=== PATIENT | female | born 1980 | race Caucasian/White ===

== ENCOUNTER 2022-02-14 09:55 | Day surgery (SDC) | payer BC ==
[2022-02-09 14:04] LABS: Urine Appearance CLOUDY (Clear); Urine Color YELLOW (Yellow)
[2022-02-09 14:05] LABS: Urine Bacteria <20 /HPF (<20); Urine Bilirubin NEGATIVE (Negative); Urine Blood 3+ (Negative); Urine Glucose NEGATIVE (Negative); Urine Microscopic Reflex ORDER UMIC; Urine Protein 1+ (Negative); Urine RBC >50 /HPF (NONE SEEN); Urine Urobilinogen 0.2 mg/dL (0.2-1.0); Urine pH 5.5 (5.0-7.0)
[2022-02-09 14:10] LABS: Absolute Lymphocytes (CBC) 2.2 K/uL (0.7-4.9); Lymphocytes % 23.7 % (15.3-44.8); MPV 7.3 fL (7.6-11.3); RBC Red Blood Cell Count 4.76 M/uL (3.86-4.86)
[~2022-02-14 09:55] MED LIST: Ringers Lactate 1,000 ML IV SCH; SCOPOLAMINE HYDROBROMIDE PATCH TD SCH
[2022-02-14 10:20] LABS: Specific Gravity 1.015 (1.005-1.030)
[2022-02-14] MEDS ORDERED: Ringers Lactate 1,000 ML IV ONE (10:20)
[2022-02-14] MEDS ORDERED: KETOROLAC 30 MG/ML INJ ONE (10:40)
[2022-02-14] MEDS ORDERED: FENTANYL CITR 100 MCG/2 ML ONE (10:40)
[2022-02-14] MEDS ORDERED: LIDOCAINE 2% MPF 5 ML VIAL ONE (10:40)
[2022-02-14] MEDS ORDERED: ONDANSETRON 4 MG/2 ML VIAL ONE (10:40)
[2022-02-14] MEDS ORDERED: MIDAZOLAM HCL 2 MG/2 ML INJ ONE (10:40)
[2022-02-14] MEDS ORDERED: dexAMETHasone 10 MG/ML VIAL ONE (10:40)
[2022-02-14] MEDS ORDERED: propofoL 200 MG/20 ML VIAL IV ONE (10:44)
[2022-02-14] MEDS ORDERED: SCOPOLAMINE HYDROBROMIDE PATCH TD ONE (11:02)
[2022-02-14] MEDS: BUPIVACAINE 0.25% PF 10 ML VIAL ONE ×3 (11:07→13:00)
[2022-02-14] MEDS: CEFAZOLIN 3 GM in NA CHLORIDE 0.9% 100 ML IVPB SCH ×2 (11:08→11:53)
[2022-02-14] MEDS ORDERED: ROCURONIUM 50 MG/5 ML VIAL IV ONE (12:03)
[2022-02-14] MEDS ORDERED: VECURONIUM 10 MG/VIAL IV ONE (12:38)
[2022-02-14] MEDS ORDERED: NS 0.9% VIAL 10 ML ONE (12:38)
[2022-02-14] MEDS: Ringers Lactate 1,000 ML IV ONE ×2 (13:42→14:27)
[2022-02-14] MEDS ORDERED: SUGAMMADEX SODIUM 200 MG/2 ML VIAL IV ONE (13:56)
[2022-02-14] MEDS ORDERED: MEPERIDINE HCL 25 MG/ML SYR IM PRN (15:10)
[2022-02-14] MEDS ORDERED: IBUPROFEN 200 MG TAB PO PRN (15:10)
[2022-02-14] MEDS ORDERED: HYDROCODONE/APAP 5/325 MG TAB PO PRN (15:10)
[2022-02-14] MEDS ORDERED: PROMETHAZINE INJ 25 MG/ML AMP IV PRN (15:10)
[2022-02-14] MEDS: HYDROMORPHONE HCL 1 MG/ML INJ ONE ×2 (15:15→15:26)
--- NOTE | 2022-02-14 15:19 | P.BOP ---
Preoperative diagnosis: LLQ pain, distension, menorrhagia,Left adnexal mass Postoperative diagnosis: same and endometriosis, appy, colon and left ureteral adhesions Primary procedure: hysteroscopy ablation, Laparoscopy bilat salpingectomy,L oophorectomy Secondary procedure: Left ureterolysis, Endometirosis rx, cysto, Other procedure(s): appy Dr Almazan (intraop consult) Section Cutter: Yvonne Pak Estimated blood loss: 50 Specimen: left ov+tube, Rt tube, Ant CDS endo, appendix Findings: sigmoid adhesions to uterus,L ovary,lat wall,CDS obliteration,endo Anesthesia: General Complications: None Transferred to: Recovery Room Condition: Good
[2022-02-14] MEDS ORDERED: PROMETHAZINE INJ 25 MG/ML AMP ONE (15:20)
--- NOTE | 2022-02-14 15:51 | P.OP ---
Date of Service: 02/14/22 Preop diagnosis: Pelvic pain and menorrhagia Postop diagnosis: Same, with endometriosis involving the appendix Procedure performed: Intraoperative consultation, laparoscopic appendectomy Surgeon: Lee Almazan MD Wool Classer: JEANCARLOS Mendieta Estimated blood loss: Minimal Specimen: Appendix Findings: As above Anesthesia: General Complications: None Drains: None Fluids and blood products: Nonapplicable Disposition: Recovery Operative note: This is a intraoperative consultation and procedure note. Dr. Thrasher was performing a diagnostic laparoscopy for pelvic pain and menorrhagia. Patient was found to have extensive endometriosis. Dr. Thrasher consulted me intraoperatively because she found endometriosis involving the appendix. After she had finished her procedure, I scrubbed in and evaluated the laparoscopic findings. Patient had a endometrial deposit in the middle of the appendix. Base of the appendix and mesoappendix was clearly identified. LigaSure was used to divide the mesoappendix. Endo NAVNEET stapling device was used to divide the base of the appendix and part of the cecum. There was no evidence of bleeding or bowel injury appreciated. The appendix was retrieved through the umbilicus via Endo Catch bag. Then all trochars removed under direct vision. Stay sutures tied to each other to reapproximate the fascial defect. Small defect remained; therefore, #1 Vicryl used to close the defect. Subcutaneous wounds irrigated and bleeding controlled with cautery. 3-0 chromic used to reapproximate subcutaneous tissue and closed skin. Sterile dressing applied and patient awakened. Patient taken to recovery room in good general condition. CC: Dr. Thrasher's office
[2022-02-14] MEDS ORDERED: HYDROCODONE/APAP 5/325 MG TAB ONE (16:25)
[2022-02-14] MEDS ORDERED: HYDROCODONE/APAP 5/325 MG TAB PO ONE (16:25)
[2022-02-14 16:40] VITALS: TEMP 97.8; O2SAT 99
[2022-02-14 16:58] VITALS: BP 135/77
--- NOTE | 2022-02-14 22:46 | OP ---
Date of Procedure: 02/14/2022 Surgeon: Margo Thrasher MD Kitchen Work Supervisor: Yvonne Gomes. Preoperative Diagnoses: Left lower quadrant pain, abdominal distention, menorrhagia, left adnexal ma ss. Postoperative Diagnoses: Left lower quadrant pain, abdominal distention, menorrhagia, left adnexal m ass, endometriosis with possible appendicitis, colon and left ureteral adhesions. Procedures Performed: Hysteroscopy, endometrial ablation with NovaSure, laparoscopy, bilateral salpi ngectomy, left oophorectomy, left ureterolysis, endometriosis excision, cystoscopy, intraoperative co nsult with Dr. Almazan, laparoscopic appendicectomy. Estimated Blood Loss: 50. Specimens: Left ovary and tube, right tube, cul-de-sac endometriosis, and appendix. Anesthesia: General endotracheal. Complications: No complications. Drains: None. Condition: The patient's condition is stable. Findings: As soon as the peritoneal cavity was entered, there was significant amount of blood in the pelvic cavity, sigmoid adhesions to the left posterior fundal wall and this was from endometriosis. The left ovary, utero-ovarian ligament, and the left lateral broad ligament and tube were all involv ed with endometriosis. The ovary was distally posteriorly adhered to the posterior broad ligament th en uterosacral ligament and the pelvic sidewall. The adhesions of the colon, once they were taken down from the ovary carefully, were adhered densely to the uterosacral ligament. There was partial cul-de-sac obliteration due to this. However, on the right side, there is an opening that I could get into the cul-de-sac and try to take the colon down. The right ovary was normal. The right tube was removed. There was endometriosis in the anterior cul -de-sac on the left side and this was excised. Appendix was folded over the cecum and there were clear implants of endometriosis, however, the appen david was also swollen and nodular. The intraoperative consult was obtained from Dr. Almazan and he oper ated on her and performed a laparoscopic appendectomy. In summary, if the patient has another surgery like a hysterectomy, she will need a bowel prep, left ureteric stent with cysto at the beginning of the procedure and then careful dissection with the pres ence of most likely assistants from General Surgery or Colorectal to take down the sigmoid distally f rom the uterosacral ligament so that the hysterectomy could be completed normally. After the cystoscopy was performed, both ureteral orifices had normal jets of urine from them. Indications: The patient is a 41-year-old female who presented with left lower quadrant pain, disten tion, menorrhagia, left adnexal mass. The ultrasound was performed. Left adnexal mass was significa nt. CA-125 was just consistent with a non malignant process, however, the small chance of this being present were discussed with the patient and if there was endometriosis, that we would remove it. Of fered different options, but the patient wanted to proceed with ablation with a hysteroscopy and lapa roscopy and removal of endometriosis and any procedures as needed. She was consented for bilateral s alpingectomy, left ovarian cystectomy or oophorectomy depending on the feasibility of the procedure a nd safely performing it and completely. These are all the findings. Procedure In Detail: After removal of the endometriosis, there was significant space created in the left lateral wall and then endometriosis on the uterus was nicely taken down. The implant on the ant erior cul-de-sac was removed. Both tubes were removed. After informed consent was verified, the patient was taken back to OR, placed in supine fashion on e table. SCDs were started. Time-out was done and 3 g of Ancef was given. She was placed in dorsal lithotomy position, and abdomen, vulva, vagina, and perineum were prepped an d draped in a sterile fashion. Brito was placed to drain the bladder. Speculum was placed to expose the cervix. Anterior lip was grasped with an Allis clamp and diagnostic SlimLine hysteroscope was u sed to measure the uterine canal under direct visualization. Cavity length measured to 4 cm. Power wattage was 81 momin, time of ablation 1 minute 16 seconds with 3.7 then 4.0. Once the scope was rem karen, cavity integrity test was done after dilating the cervix to 18-Japanese and deploying the device in the usual fashion. The length was 4 cm and the width was 3.7 cm with direct calculation. I went ahead and started the ablation after the cavity integrity test and there was excellent ablation effec t. Once the device was undeployed, hysteroscopy was performed to ensure this inside the cavity. Onc e this was done, the manipulator was placed inside the uterus. After making sure that the abdomen was draped appropriately, a 1 cm incision was made in the infraumb ilical area with the scalpel. Fascia was incised and tagged with 0 Vicryl sutures. Peritoneum enter ed sharply. S-retractors were placed and Jeffy introduced. After adequate insufflation, the camera was placed. Port site was unremarkable. Upper abdominal surface was unremarkable. I went down to the pelvis and all the findings as dictated above were seen. So two 5 ports were plac ed, one in the right and the other in the left lower quadrant. Once this was done, good visualizatio n was obtained. I started to work on the colon that was adhered to the left posterior fundal wall. This was taken down systematically, resting mostly on the uterine wall. With sharp and blunt dissect ion and with the tip of the suction, this was done. Once the colon was taken down, the ovary was attached to the uterus as well as the lateral wall and t he posterior broad ligament and then distally attached to the uterosacral, so it was difficult to dis cern the relationship here of the colon. So first started opening up the lateral wall and taking yessica n the left tube. Once this was taken down with the help of LigaSure, then opened the lateral wall an d dissected above and below the round ligament. Below the round ligament, opened up all the base so that I could get into the retroperitoneal space on the left side. Once this was done and the ureter was identified along the medial leaf of the broad ligament, then posteriorly coming down the ovary wa s dissected from the colon safely while protecting the colon, then going down to the origin of the ut erosacral. Here, the ovary sharply and bluntly with the help of the LigaSure and then dis secting it off from the posterior broad ligament from visualization through the top of the broad liga ment, which was already opened up. This kept it safe and once the ovary was detached from all these attachments, then uteroovarian ligament was taken down and then it was dissected on the IP ligament a nd isolated. Ureter was completely dissected from the pelvic rim to the ureteric tunnel visualizing the medial leaf of the broad ligament and from the lateral wall so that all the suction co uld be safely performed. Then went ahead and took down the IP ligament with the help of the LigaSure and the specimen was deta ched and placed in the anterior cul-de-sac. Endometriosis of the anterior cul-de-sac on the left side was picked up and circumferentially separat ed and dissected out and handed out for permanent pathology. The specimen of the ovary was placed in a 10 mm bag and pulled out through the umbilical port. The tube on the right side was taken down with the help of the LigaSure. Then, the rest of the perit oneum was inspected. There was small amount of endometriosis in the posterior cul-de-sac dissecting the sigmoid from the uterosacral on the left side, but it was difficult. Next time, if there is a ne xt time, it is very important to place a stent on the ureter so that the ureter can be safely protect ed and dissected away from the uterosacral ligament before taking down the colon and once the colon w as taken down the pararectal spaces on the left side then the colon could be dropped to expose the po sterior vaginal wall. Once the pelvic surgery was completed, then looked over to the appendix and this had the endometriosi s and the swelling as dictated. Please look at Dr. Almazan's note. At this point, I scrubbed out and handed the procedure to Dr. Almazan and he closed the incisions and finished the case. All this was debriefed to the . We will talk about it to the patient as well, but I expect th at she will get much better and we will see the outcome and proceed with further plan. EMILY Voice ID: [id number] Report ID: [id number]
[2022-02-15] MEDS ORDERED: ROSUVASTATIN 10 MG TAB PO SCH (09:00)
[2022-02-15] MEDS ORDERED: EZETIMIBE 10 MG TAB PO SCH (09:00)
[2022-02-15] MEDS ORDERED: FLUTICASONE 50MCG NASAL SPRAY NAS SCH (09:00)
[2022-02-15] MEDS ORDERED: HOME MED 1 EA UNK (Cetirizine Hcl [Zyrtec] 10 MG Capsule) PO SCH (09:00)
== END 2022-02-14 16:57 | disposition home or self-care (01) ==
LOC: OR 09:55
PROVIDERS: ATTEND Obstetrics & Gynecology
PROC: 0UT14ZZ Resection of Left Ovary, Percutaneous Endoscopic Approach (ICD-10-PCS; 2022-02-14)
PROC: 0UT74ZZ Resection of Bilateral Fallopian Tubes, Percutaneous Endoscopic Approach (ICD-10-PCS; 2022-02-14)
PROC: 0UBF4ZZ Excision of Cul-de-sac, Percutaneous Endoscopic Approach (ICD-10-PCS; 2022-02-14)
PROC: 0DTJ4ZZ Resection of Appendix, Percutaneous Endoscopic Approach (ICD-10-PCS; 2022-02-14)
PROC: 0U5B8ZZ Destruction of Endometrium, Via Natural or Artificial Opening Endoscopic (ICD-10-PCS; principal; 2022-02-14 11:00)
DX: N92.0 Excessive and frequent menstruation with regular cycle (principal); R31.21 Asymptomatic microscopic hematuria; N81.2 Incomplete uterovaginal prolapse; R19.09 Other intra-abdominal and pelvic swelling, mass and lump; R03.0 Elevated blood-pressure reading, without diagnosis of hypertension; Z30.09 Encounter for other general counseling and advice on contraception; Z20.822 Contact with and (suspected) exposure to COVID-19; K37 Unspecified appendicitis; R10.32 Left lower quadrant pain
CPT/HCPCS: 87088; 85025; 87086; 36415; 86900; 86850; 81025; 86901; 88304; 88305; 58563; 58661; 58662; 44970; U0002; J2704; J2550; J2250; J3010; J1100; J1170; J7120 ×2; J2405; J0690; 81003; 81015; 88302

== ENCOUNTER 2024-03-27 10:49 | Emergency (ER) | payer BC ==
[2024-03-27] MEDS ORDERED: MECLIZINE HCL 12.5 MG TAB ONE (11:25)
--- NOTE | 2024-03-27 11:31 | RAD REPORT ---
EXAM DESCRIPTION: CT - Head Brain Wo Cont - 03/27/2024 11:25 am CLINICAL HISTORY: vertigo;Dizziness COMPARISON: No comparisons TECHNIQUE: All CT scans are performed using dose optimization technique as appropriate and may inclu de automated exposure control or mA/KV adjustment according to patient size. FINDINGS: No intracranial hemorrhage, hydrocephalus or extra-axial fluid collection.No areas of brai n edema or evidence of midline shift. Cerebral atrophy. Mucous retention cyst in the left maxillary sinus. The calvarium is intact. IMPRESSION: No acute intracranial abnormality.
[2024-03-27 11:51] LABS: Absolute Basophils 0.1 K/uL (0-0.5); Absolute Eosinophils 0.4 K/uL (0-0.5); Absolute Lymphocytes (CBC) 2.6 K/uL (0.7-4.9); Absolute Monocytes 0.8 K/uL (0.1-1.3); Absolute Neutrophil 8.3 K/uL (1.8-8.0); Eosinophils % 3.3 % (0-4.4); Hematocrit 40.4 % (36.0-45.0); Lymphocytes % 21.1 % (15.3-44.8); MCH 30.4 pg (27.0-35.0); MCHC 34.6 g/dL (32.0-36.0); MCV 87.9 fL (80-100); MPV 7.1 fL (7.6-11.3); Monocytes % 6.8 % (3.3-12.3); Neutrophils % 67.8 % (41.7-73.7); Platelets 297 thou/uL (152-406); Red Cell Distribution Width 13.1 % (12.1-15.2)
[2024-03-27 12:08] LABS: Albumin/Globulin Ratio 1.4 (1.1-1.8); Anion Gap 14.2 mEq/L (5.0-15.0); Bilirubin Total 2.2 mg/dL (0.2-1.0); Globulin 2.9 g/dL (2.3-3.5); Potassium 3.2 mEq/L (3.5-5.1); Protein, Total 6.9 g/dL (6.4-8.2)
[2024-03-27] MEDS ORDERED: LORazepam 2 MG/ML VIAL ONE (12:20)
--- NOTE | 2024-03-27 12:56 | ER ---
Nurse's Notes [facility] Name: Lissa Dalal Age: 43 yrs Sex: Female : 1980 Arrival Date: 03/27/2024 Time: 10:49 Bed 16 Private MD: Diagnosis: Peripheral vertigo Presentation: 03/27 10:45 Chief complaint: Patient states: Dizziness, onset while at pilates laying on bed, nj1 moving head. States it happened once before last week when she got out of bed, not as severe. EMS states: Pt was at pilates and started feeling dizzy and shaky. 10:45 Method Of Arrival: EMS: [facility] 10:45 Coronavirus screen: Vaccine status: Patient reports receiving the 1st dose of the Covid nj1 vaccine. Ebola Screen: Patient denies travel to an Ebola-affected area in the 21 days before illness onset. Initial Sepsis Screen: Does the patient meet any 2 criteria? No. Patient's initial sepsis screen is negative. Does the patient have a suspected source of infection? No. Patient's initial sepsis screen is negative. Risk Assessment: Do you want to hurt yourself or someone else? Patient reports no desire to harm self or others. Onset of symptoms was March 27, 2024. Care prior to arrival: Medication(s) given: Normal saline infusion, 500 mL, zofran 4 mg, IV initiated. 22 GA, in the right hand, Glucose check: 78. 10:45 Acuity: DARLENE 3 nj1 Historical: - Allergies: 11:09 No Known Allergies; nj1 - PMHx: 11:09 Hypercholesterolemia; nj1 - Immunization history:: Client reports receiving the 1st dose of the Covid vaccine. - Infectious Disease History:: Denies. - Social history:: Smoking status: Patient denies any tobacco usage or history of. Screenin:[facility] ED Fall Risk Assessment (Adult) History of falling in the last 3 months, nj1 including since admission No falls in past 3 months (0 pts) Confusion or Disorientation No (0 pts) Intoxicated or Sedated No (0 pts) Impaired Gait No (0 pts) Mobility Assist Device Used No (0 pt) Altered Elimination No (0 pt) Score/Fall Risk Level 0 - 2 = Low Risk Oriented to surroundings, Maintained a safe environment, Hourly rounding (assess needs \T\ fall precautionary measures) done. Abuse screen: Denies threats or abuse. Denies injuries from another. Nutritional screening: No deficits noted. Tuberculosis screening: No symptoms or risk factors identified. Assessment: 10:50 General: Appears uncomfortable, Behavior is calm, cooperative, appropriate for age. nj1 10:50 Pain: Denies pain. Neuro: Level of Consciousness is awake, alert, obeys commands, nj1 Oriented to person, place, time, situation. Neuro: Reports dizziness. Cardiovascular: Patient's skin is warm and dry. Respiratory: Airway is patent Respiratory effort is even, unlabored. 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 nj1 Education provided.. Neuro: Reports Tingling all over.. Respiratory: Respiratory effort is Respiratory pattern is tachypnea. 13:52 General: Pt reports that she is still feeling nauseous. notified and another dose of kb3 zofran ODT ordered. Instructed pt to stop drinking water until nausea has resolved. 14:22 Reassessment: Patient appears in no apparent distress at this time. Patient states nj1 feeling better. Patient states symptoms have improved. Vital Signs: 10:45 BP 132 / 73; Pulse 87; Resp 16; Temp 97.4(TE); Pulse Ox 100% on R/A; Weight 77.11 kg; nj1 Height 5 ft. 0 in. ; 10:56 BP 132 / 73; Pulse 85; Resp 20; Temp 97.4; Pulse Ox 100% on R/A; aw1 12:11 BP 131 / 83; Pulse 95; Resp 18; Pulse Ox 100% on R/A; nj1 10:45 Body Mass Index 33.20 (77.11 kg, 152.4 cm) nj1 ED Course: 10:54 Patient arrived in ED. bc6 10:54 Amy Hathaway, PÉREZ is Primary Nurse. nj1 10:56 Patient has correct armband on for positive identification. Bed in low position. Call aw1 light in reach. Side rails up X2. Door closed. Noise minimized. Lights dimmed. Warm blanket given. Pillow given. 10:59 Neel Izaguirre MD is Attending Physician. sp3 11:00 Maintain EMS IV. Dressing intact. Site clean \T\ dry. Gauge \T\ site: 22 R Hand. IV is nj 1 patent. 11:08 Triage completed. nj1 11:10 Provided Education on: call light, fall precautions. nj1 11:27 CT Head Brain wo Cont In Process Unspecified. EDMS 13:18 No provider procedures requiring assistance completed. nj1 13:18 IV discontinued, intact, bleeding controlled, Pressure dressing applied. nj1 13:25 Notified ED physician of Notified Charge Nurse of dizzy upon sitting up to get ready to nj1 leave. Administered Medications: 11:34 Drug: Meclizine PO 50 mg PO once Route: PO; nj1 12:18 Follow up: Response: No adverse reaction nj1 12:24 Drug: Ativan IVP 1 mg IVP once Route: IVP; Site: right hand; nj1 13:15 Follow up: Response: No adverse reaction; Marked relief of symptoms nj1 13:15 Drug: Potassium Chloride PO 40 mEq PO once Route: PO; nj1 13:20 Drug: Ondansetron PO 4 mg PO once Route: PO; nj1 13:59 Drug: Ondansetron Oral Disintegrating Tablet Oral Disintegrating Tablet 4 mg PO once kb3 Route: PO; Medication: 13:18 VIS not applicable for this client. nj1 Outcome: 12:56 Discharge ordered by . sp3 13:15 Discharged to home via wheelchair, with family, nj1 13:15 Condition: stable 13:15 Discharge instructions given to patient, family, Instructed on discharge instructions, follow up and referral plans. medication usage, Demonstrated understanding of instructions, follow-up care, medications, Prescriptions given X 1, 14:22 Patient left the ED. nj1 Signatures: Dispatcher [employer] EDMS Neel Izaguirre MD MD sp3 Bharati Pablo, RN RN kb3 Mireille Mary bc6 Amy Hathaway RN RN nj1 Gilda Salguero aw1
--- NOTE | 2024-03-27 12:56 | EDPHYS ---
Physician Documentation [facility] Name: Lissa Dalal Age: 43 yrs Sex: Female : 1980 Arrival Date: 03/27/2024 Time: 10:49 Bed 16 Private MD: ED Physician Neel Izaguirre HPI: 03/27 11:21 This 43 yrs old Female presents to ER via EMS with complaints of Dizziness. sp3 11:21 43-year-old female with history of hypercholesterolemia and recent diagnosis of benign sp3 positional vertigo by her PCP Dr. Aguilar approximately 1 week ago for which she did meclizine p.o. and Shama-Hallpike maneuvers which resolved her symptoms until today while she was at [employer] class she had recurrence of sudden onset room spinning and vertigo. EMS was activated and brought her to the ED. They administered Zofran IV and IV fluids which have helped somewhat. She still states she is having the vertigo. She denies any headache, fever, URI symptoms, neck pain, chest pain, shortness of breath, syncope, near syncope, rash, bleeding, or any other signs or symptoms on ROS at this time. Patient has had no prior imaging of her brain or head.. Historical: - Allergies: 11:09 No Known Allergies; nj1 - PMHx: 11:09 Hypercholesterolemia; nj1 - Immunization history:: Client reports receiving the 1st dose of the Covid vaccine. - Infectious Disease History:: Denies. - Social history:: Smoking status: Patient denies any tobacco usage or history of. ROS: 11:22 Constitutional: Negative for fever, chills, and weight loss, Eyes: Negative for injury, sp3 pain, redness, and discharge, Neck: Negative for injury, pain, and swelling, Cardiovascular: Negative for chest pain, palpitations, and edema, Respiratory: Negative for shortness of breath, cough, wheezing, and pleuritic chest pain, Abdomen/GI: Negative for abdominal pain, nausea, vomiting, diarrhea, and constipation, Back: Negative for injury and pain, : Negative for injury, bleeding, discharge, and swelling, MS/Extremity: Negative for injury and deformity, Skin: Negative for injury, rash, and discoloration, Psych: Negative for depression, anxiety, suicide ideation, homicidal ideation, and hallucinations, Allergy/Immunology: Negative for hives, rash, and allergies, Endocrine: Negative for neck swelling, polydipsia, polyuria, polyphagia, and marked weight changes, Hematologic/Lymphatic: Negative for swollen nodes, abnormal bleeding, and unusual bruising, 11:22 All other systems are negative, Exam: 11:22 Constitutional: This is a well developed, well nourished patient who is awake, alert, sp3 and in no acute distress. Head/Face: Normocephalic, atraumatic. ENT: Nares patent. No nasal discharge, no septal abnormalities noted. External auditory canals are clear. Oropharynx with no redness, swelling, or masses, exudates, or evidence of obstruction, uvula midline. Mucous membranes moist. Neck: Trachea midline, no thyromegaly or masses palpated, and no cervical lymphadenopathy. Supple, full range of motion without nuchal rigidity, or vertebral point tenderness. No Meningismus. Chest/axilla: Normal chest wall appearance and motion. Nontender with no deformity. No lesions are appreciated. Cardiovascular: Regular rate and rhythm with a normal S1 and S2. No gallops, murmurs, or rubs. Normal PMI, no JVD. No pulse deficits. Respiratory: Lungs have equal breath sounds bilaterally, clear to auscultation and percussion. No rales, rhonchi or wheezes noted. No increased work of breathing, no retractions or nasal flaring. Abdomen/GI: Soft, non-tender, with normal bowel sounds. No distension or tympany. No guarding or rebound. No evidence of tenderness throughout. Back: No spinal tenderness. No costovertebral tenderness. Full range of motion. Skin: Warm, dry with normal turgor. Normal color with no rashes, no lesions, and no evidence of cellulitis. MS/ Extremity: Pulses equal, no cyanosis. Neurovascular intact. Full, normal range of motion. Neuro: Awake and alert, GCS 15, oriented to person, place, time, and situation. Cranial nerves II-XII grossly intact. Motor strength 5/5 in all extremities. Sensory grossly intact. Cerebellar exam normal. Normal gait. Psych: Awake, alert, with orientation to person, place and time. Behavior, mood, and affect are within normal limits. 11:22 Eyes: Inducible horizontal nystagmus noted.. Vital Signs: 10:45 BP 132 / 73; Pulse 87; Resp 16; Temp 97.4(TE); Pulse Ox 100% on R/A; Weight 77.11 kg; nj1 Height 5 ft. 0 in. ; 10:56 BP 132 / 73; Pulse 85; Resp 20; Temp 97.4; Pulse Ox 100% on R/A; aw1 12:11 BP 131 / 83; Pulse 95; Resp 18; Pulse Ox 100% on R/A; nj1 10:45 Body Mass Index 33.20 (77.11 kg, 152.4 cm) nj1 MDM: 11:10 Patient medically screened. sp3 11:24 Data reviewed: vital signs, nurses notes, EMS record, lab test result(s), radiologic sp3 studies. ED course: 43-year-old female with recurrent vertigo. Probable peripheral vertigo however central vertigo cannot be fully excluded until CT scan is complete. Patient has had no prior imaging. Will continue IV fluids and add meclizine p.o. along with routine labs. Disposition probable discharge and continue following up with her PCP and or ENT as needed.. 12:55 ED course: Patient became anxious and we gave 1 mg Ativan after which she feels better. sp3 Vertigo symptoms are much improved. We will safely discharged home at this time. CT scan of the head and laboratory values demonstrate no significant abnormality except for mild hypokalemia.. 03/27 11:11 Order name: CBC with Diff; Complete Time: 12:12 sp3 03/27 11:11 Order name: CMP; Complete Time: 12:12 sp3 03/27 11:18 Order name: Glucose, Ancillary Testing; Complete Time: 11:43 EDMS 03/27 11:10 Order name: CT Head Brain wo Cont; Complete Time: 11:43 sp3 03/27 11:11 Order name: IV Saline Lock; Complete Time: 11:12 sp3 03/27 11:11 Order name: Labs collected and sent; Complete Time: 11:42 sp3 Administered Medications: 11:34 Drug: Meclizine PO 50 mg PO once Route: PO; nj1 12:18 Follow up: Response: No adverse reaction nj1 12:24 Drug: Ativan IVP 1 mg IVP once Route: IVP; Site: right hand; nj1 13:15 Follow up: Response: No adverse reaction; Marked relief of symptoms nj1 13:15 Drug: Potassium Chloride PO 40 mEq PO once Route: PO; nj1 13:20 Drug: Ondansetron PO 4 mg PO once Route: PO; nj1 13:59 Drug: Ondansetron Oral Disintegrating Tablet Oral Disintegrating Tablet 4 mg PO once kb3 Route: PO; Disposition Summary: 03/27/24 12:56 Discharge Ordered Notes: Location: Home sp3 Condition: Stable sp3 Diagnosis - Peripheral vertigo sp3 Followup: sp3 - With: Private Physician - When: Upon discharge from the Emergency Department - Reason: Continuance of care Discharge Instructions: - Discharge Summary Sheet sp3 - Vertigo sp3 Forms: - Medication Reconciliation Form sp3 - Antibiotic Education sp3 - Prescription Opioid Use sp3 - Patient Portal Instructions sp3 - Leadership Thank You Letter sp3 Prescriptions: - Meclizine 25 mg Oral Tablet - take 1 tablet ORAL route every 8 hours As needed; 30 tablet; Refills: 0, sp3 Product Selection Permitted Signatures: Dispatcher [employer] EDMS Neel Izaguirre MD MD sp3 Bharati Pablo RN RN kb3 Amy Hathaway RN RN nj1 Corrections: (The following items were deleted from the chart) 14:06 14:01 Lab Add On ordered. EDMS EDMS 14:07 13:59 CBC with Automated Diff ordered. EDMS EDMS 14:07 13:59 CBC with Automated Diff ordered. EDMS EDMS 14:07 13:59 CBC with Automated Diff ordered. EDMS EDMS 14:07 13:59 CBC with Automated Diff ordered. EDMS EDMS 14:07 13:59 Comprehensive Metabolic Panel ordered. EDMS EDMS 14:07 13:59 Comprehensive Metabolic Panel ordered. EDMS EDMS 14:07 13:59 Comprehensive Metabolic Panel ordered. EDMS EDMS 14:07 13:59 Comprehensive Metabolic Panel ordered. EDMS EDMS 14:08 13:59 Lipid Profile ordered. EDMS EDMS 14:08 13:59 Lipid Profile ordered. EDMS EDMS
[2024-03-27] MEDS ORDERED: POTASSIUM CL SA 10 MEQ TAB PO ONE ×2 (13:04→13:16)
[2024-03-27] MEDS ORDERED: ONDANSETRON 4 MG (ODT) TAB ONE ×2 (13:19→13:52)
--- NOTE | 2024-03-27 13:57 | P.HP ---
Certification for Inpatient Patient admitted to: Observation With expected LOS: <2 Midnights Patient will require the following post-hospital care: None Practitioner: I am a practitioner with admitting privileges, knowledge of patient current condition, hospital course, and medical plan of care. Services: Services provided to patient in accordance with Admission requirements found in Title 42 Section 412.3 of the Code of Federal Regulations Patient History Date of Service: 03/27/24 Allergies No Known Allergies Allergy (Verified 02/09/22 13:17) Home Medications: Cetirizine HCl [Zyrtec] 1 cap PO DAILY 02/10/22 Ezetimibe [Zetia] 1 tab PO DAILY 02/10/22 Fluticasone [Flonase 50MCG Nasal [place]*] 2 spray JENIFER DAILY 02/10/22 Rosuvastatin [Crestor*] 1 tab PO DAILY 02/10/22 Physical Examination - Studies Laboratory Data (last 24 hrs) 03/27/24 03/27/24 11:39 11:39 WBC 12.20 H Hgb 14.0 Hct 40.4 Plt Count 297 Sodium 139 Potassium 3.2 L BUN 14 Creatinine 0.90 Glucose 124 H Total Bilirubin 2.2 H AST 31 ALT 46 Alkaline Phosphatase 99 Assessment and Plan - Plan Near syncope with hypotension Gentle hydration Monitor and trend electrolytes, replete as needed Regular diet Medication adverse reaction Hold lorazepam Hold hydrocodone Decrease gabapentin to 100 mg p.o. 3 times daily Neurochecks every 4h Will need repeat follow-up with Dr. Izaguirre postdischarge Hypertension Patient normally takes carvedilol 12.5 mg twice daily -hold for now Monitor and trend vital signs PTSD Hold Abilify, start Effexor 37.5 p.o. tomorrow VTE/GI prophylaxis SCD, Protonix - Advance Directives Does patient have a Living Will: No Does patient have a Durable POA for Healthcare: No
[2024-03-27] MEDS ORDERED: GABAPENTIN 100 MG CAP PO SCH (14:00)
[2024-03-27] MEDS ORDERED: NA CHLORIDE 0.9% 1,000 ML IV SCH (14:00)
[2024-03-28] MEDS ORDERED: PANTOPRAZOLE 40MG TABLET PO SCH (06:30)
[2024-03-28] MEDS ORDERED: VENLAFAXINE HCL XR 37.5MG CAP PO SCH (09:00)
== END 2024-03-27 14:22 | disposition home or self-care (01) ==
LOC: ER 10:49
DX: H81.399 Other peripheral vertigo, unspecified ear (principal); E78.00 Pure hypercholesterolemia, unspecified
CPT/HCPCS: 85025; 36415; 82947; 80053; 70450; 96374; 99284; J8597; Q0162 ×2